=== PATIENT | male | born 1955 | race Caucasian/White ===

== ENCOUNTER 2022-09-23 10:07 | Emergency (ER) | payer MEDICARE, BC ==
[~2022-09-23] VITALS: Ht 188 cm; Wt 88.2 kg
[~2022-09-23 10:07] MED LIST: FLUT1DIS4 INH; TRAM50TA2 PO
[2022-09-23 10:18] VITALS: BP 134/92
[2022-09-23] MEDS ORDERED: orphenadrine citrate 60mg/2ml inj. IM ONE (11:00)
[2022-09-23] MEDS ORDERED: HYDROcodone/acetaminophen 5mg/325mg tablet PO ONE (11:00)
[2022-09-23] MEDS ORDERED: ORPH100T4 PO (11:15)
[2022-09-23] MEDS ORDERED: HYDR-3973 PO (11:15)
== END 2022-09-23 12:01 | disposition home or self-care (01) ==
LOC: ER 10:07
DX: M54.59 Other low back pain (principal); Z88.8 Allergy status to other drugs, medicaments and biological substances; Z79.899 Other long term (current) drug therapy
CPT/HCPCS: 96372; 99283; J2360